=== PATIENT | male | born 1970 | race African-American/Black ===

== ENCOUNTER → 2016-11-01 | Outpatient (CLI) | payer MEDICARE, OTHER | END | disposition home or self-care (01) | LOC: CDC 09:57 | DX: M75.40 Impingement syndrome of unspecified shoulder (principal); M25.512 Pain in left shoulder; I49.1 Atrial premature depolarization; R94.31 Abnormal electrocardiogram [ECG] [EKG] | CPT/HCPCS: 93000 ==

== ENCOUNTER 2016-11-15 12:23 | Day surgery (SDC) | payer OTHER ==
[~2016-11-15] VITALS: Ht 177.8 cm; Wt 119.7 kg
[~2016-11-15 12:23] MED LIST: FLOMAX0.4 MG PO; GLUCOPHAGE500 MG PO; ZESTRIL5 MG PO
[2016-11-15 12:53] LABS: POINT-OF-CARE METER ID UU14174212
[2016-11-15 12:58] VITALS: BP 124/69
[2016-11-15 17:06] LABS: POINT-OF-CARE METER ID UU13113675
[2016-11-15 17:45] VITALS: BP 139/84
[2016-11-15 18:18] VITALS: BP 146/82
== END 2016-11-15 18:38 | disposition home or self-care (01) ==
LOC: SDC 12:23
PROVIDERS: Orthopaedic Surgery Hand Surgery
DX: M75.42 Impingement syndrome of left shoulder (principal); M75.102 Unspecified rotator cuff tear or rupture of left shoulder, not specified as traumatic; E11.9 Type 2 diabetes mellitus without complications; G47.30 Sleep apnea, unspecified; E78.5 Hyperlipidemia, unspecified; Z79.84 Long term (current) use of oral hypoglycemic drugs; Z82.49 Family history of ischemic heart disease and other diseases of the circulatory system; Z88.8 Allergy status to other drugs, medicaments and biological substances
CPT/HCPCS: 82948; C1713; J0131; J0171; J0330; J0690; J1100; J1885; J2250; J2405; J2795; J3010